=== PATIENT | female | born 1970 | race Two or more races ===

== ENCOUNTER 2018-05-01 14:21 | Emergency (ER) | payer OTHER ==
[~2018-05-01] VITALS: Ht 165.1 cm; Wt 57.2 kg
[2018-05-01 14:50] VITALS: BP 120/64
[2018-05-01] MEDS ORDERED: ACETAMINOPHEN ES 500 MG TABLET PO ONE (15:00)
[2018-05-01] MEDS ORDERED: ONDANSETRON 4 MG TAB.RAPDIS SL ONE (15:00)
[2018-05-01] MEDS ORDERED: ACETAMINOPHEN ES 500 MG TABLET ONE (15:19)
[2018-05-01] MEDS ORDERED: ONDANSETRON 4 MG TAB.RAPDIS ONE (15:20)
--- NOTE | 2018-05-01 16:05 | NUR ---
Patient discharged to home in stable condition. Written and verbal after care instructions given. Patient verbalizes understanding of instruction.
== END 2018-05-01 16:06 | disposition home or self-care (01) ==
LOC: ER 14:21
DX: S06.0X0A Concussion without loss of consciousness, initial encounter (principal); S13.9XXA Sprain of joints and ligaments of unspecified parts of neck, initial encounter; S39.012A Strain of muscle, fascia and tendon of lower back, initial encounter; R42 Dizziness and giddiness; R11.2 Nausea with vomiting, unspecified; V43.52XA Car driver injured in collision with other type car in traffic accident, initial encounter; Y93.89 Activity, other specified; Y92.410 Unspecified street and highway as the place of occurrence of the external cause; Y99.8 Other external cause status
CPT/HCPCS: 70450; 99284; A4606; Q0162; Z7610